=== PATIENT | male | born 1960 | race Caucasian/White ===

== ENCOUNTER → 2016-09-29 | Outpatient (CLI) | payer BC ==
[~2016-09-29] MED LIST: ASPI325T39 PO; ATOR-24 PO; BUPR75TA20 PO; CYM/30 PO; CYM/60 PO; GLC/500 PO; HYDR25TA4 PO; LSN5 PO
--- NOTE | 2016-09-29 09:09 | DIAGNOSTIC IMAGING REPORT ---
MRI OF THE CERVICAL SPINE WITHOUT CONTRAST CLINICAL HISTORY: Cord compression. Neck pain following remote injury. COMPARISON: None TECHNIQUE: Utilizing a 1.5 Jie magnet and dedicated coil, multiplanar, multiecho imaging of the cervical spine was performed without IV contrast. FINDINGS: Alignment of the cervical spine is anatomic. Vertebral body heights are maintained. There is no marrow replacement. There is no intracanalicular mass or fluid collection. Cervical cord signal and caliber are normal. C2-C3: The central canal and neural foramen are patent. C3-C4: The central canal is patent. There is mild narrowing of both neural foramen. C4-C5: There is mild narrowing of the central canal due to disc osteophyte complex and ligamentous hypertrophy. There is moderate narrowing of both neural foramen due to facet arthrosis and uncovertebral hypertrophy. C5-C6: Posterior disc osteophyte complex results in mild narrowing of the central canal. There is severe narrowing of the left neural foramen and mild narrowing of the right neural foramen. C6-C7: The central canal is patent. There is mild narrowing of both neural foramen. C7-T1: The central canal and neural foramen are patent. IMPRESSION: 1. Mild multilevel degenerative disc disease with mild central canal stenosis at several levels. Normal cervical cord signal. 2. Moderate to severe multilevel neural foraminal stenosis most pronounced at C5-C6 and C4-C5, as described above. Electronically signed by: Alvaro Lawton M.D. 09/29/2016 9:08 AM Dictated Date/Time: 09/29/2016 9:02 AM
== END | disposition home or self-care (01) ==
LOC: C.MRIBC 08:09
PROVIDERS: ATTEND Orthopaedic Surgery Orthopaedic Surgery of the Spine
DX: M47.812 Spondylosis without myelopathy or radiculopathy, cervical region (principal)

== ENCOUNTER 2016-12-12 05:50 | Observation (INO) | payer BC ==
[2016-10-20 10:49] VITALS: BMI 32.0
--- NOTE | 2016-10-20 11:23 | PAT Medication Instructions ---
Service Date Oct 20, 2016. Current Home Medication List Aspirin (Aspirin Ec), 325 MG PO NOON Atorvastatin (Lipitor), 40 MG PO HS Bupropion (Wellbutrin), Unknown Dose PO QAM Duloxetine HCl (Cymbalta), 1 CAP PO QAM Duloxetine HCl (Cymbalta), 1 CAP PO QAM Hydrochlorothiazide (Hctz), 25 MG PO QAM Lisinopril (Lisinopril), Unknown Dose PO QAM Medication Instructions For Your Scheduled Surgery - Check with surgeon/primary care physician for instructions: Aspirin (Aspirin Ec), 325 MG PO NOON - Hold the following medications the morning of surgery: Hydrochlorothiazide (Hctz), 25 MG PO QAM Lisinopril (Lisinopril), Unknown Dose PO QAM - Take the following medications the morning of surgery with a sip of water: Duloxetine HCl (Cymbalta), 1 CAP PO QAM Duloxetine HCl (Cymbalta), 1 CAP PO QAM Bupropion (Wellbutrin), Unknown Dose PO QAM - Take the following medications as scheduled the night before surgery: Atorvastatin (Lipitor), 40 MG PO HS If you have any questions please call us at [phone] (Sonya Weaver PA-C) or [phone] or [phone]
--- NOTE | 2016-10-20 12:16 | DIAGNOSTIC IMAGING REPORT ---
TWO VIEW CHEST CLINICAL HISTORY: Preoperative examination. FINDINGS: PA and lateral chest radiographs are obtained. No prior studies are available for comparison at the time of dictation. The cardiomediastinal silhouette is unremarkable. The lungs and pleural spaces are clear. There is no pneumothorax. The bony thorax appears intact. IMPRESSION: No active disease in the chest. Electronically signed by: Elder Hopkins M.D. 10/20/2016 12:14 PM Dictated Date/Time: 10/20/2016 12:14 PM
[2016-10-20 12:41] LABS: BASO % 0.5 %; BASO ABS # 0.03 K/uL (0-0.2); COMPLETE YES; EOS % 1.8 %; HEMATOCRIT 41.5 % (42-52); IG% 0.5 %; LYMPH % 18.5 %; LYMPH ABS # 1.05 K/uL (1.2-3.4); MEAN CELL VOLUME 84.2 fL (80-100); MEAN CORPUSCULAR HEMOGLOBIN 29.2 pg (25-34); MEAN CORPUSCULAR HGB CONC 34.7 g/dl (32-36); NEUT % 66.7 %; PLATELET COUNT 224 K/uL (130-400); RED BLOOD COUNT 4.93 M/uL (4.7-6.1); WHITE BLOOD COUNT 5.68 K/uL (4.8-10.8)
[2016-10-20 12:49] LABS: URINE APPEARANCE CLEAR (CLEAR); URINE BILIRUBIN NEG (NEG); URINE COLOR YELLOW; URINE NITRITE NEG (NEG); UROBILINOGEN NEG (NEG)
[2016-10-20 12:52] LABS: PROTHROMBIN TIME (PATIENT) 10.4 SECONDS (9.0-12.0)
[2016-10-20 12:58] LABS: MANUAL MICROSCOPIC REQUIRED? NO; REVIEW REQ? NO
[2016-10-20 13:20] LABS: BUN/CREATININE RATIO 14.6 (10-20); CALCIUM 8.7 mg/dl (8.5-10.1); CREATININE 1.1 mg/dl (0.60-1.40); POTASSIUM 4.1 mmol/L (3.5-5.1)
[2016-10-20 13:38] LABS: BETA-HYDROXYBUTYRATE 1.29 mg/dL (0.2-2.81)
--- NOTE | 2016-12-06 08:54 | HISTORY & PHYSICAL EXAMINATION ---
DATE OF ADMISSION: 12/07/2016 He is being preoped for single-level ACDF cervical spine C5-C6 with iliac crest bone graft. He has had a 27-year duration of pain, headaches primarily, neck and arm pain, trapezius pain. He has failed conservative measures. He has radiographic criteria consistent with his pain. He is set up for his surgery. MEDICAL HISTORY: Positive for anxiety, numbness and tingling, hypertension, high cholesterol, diabetes mellitus. No coronary artery disease. Kidney and liver negative. Slightly overweight. SURGICAL HISTORY: Undescended testicle repair in 1970s, wisdom teeth, tonsils. ALLERGIES: BEE STING. MEDICATIONS: Hydrochlorothiazide, lisinopril, Cymbalta, Wellbutrin, aspirin and metformin. REVIEW OF SYSTEMS: He denies any blurred vision, double vision, tinnitus. He does have headaches consistent with his cervical pathology. He denied in the office any chest pain, shortness of breath. Occasional asthma but currently no shortness of breath. No nausea, vomiting, urgency, frequency. No change in bowel or bladder function. OBJECTIVE: GENERAL: He is 5 feet 6 inches. He is 205 pounds. He is appropriately dressed. His mentation is normal. Does not appear depressed. He is 56 years of age. VITAL SIGNS: Stable on preop. HEENT: Essentially normal. HEART: Normal S1, S2. No S3. LUNGS: Clear to auscultation. No rales, rhonchi or wheezing. ABDOMEN: Soft and nontender. NEUROLOGIC: Intact, 5/5 strength, good sensation and motor ability. Has a positive Spurling maneuver and Lhermitte sign. No upper motor neuron pathology. Images demonstrate degenerative changes C5-C6 cervical. DISPOSITION: Includes a single-level ACDF cervical spine C5-C6 with iliac crest bone graft.
[2016-12-06 15:08] VITALS: BMI 32.0
[~2016-12-12] VITALS: Ht 167.6 cm; Wt 91.4 kg
[2016-12-12] VITALS (13 sets, daily range): BP systolic 109–149; BP diastolic 69–82; PULSE 78–102; TEMP 36.4–36.9; O2SAT 3–98; Ht 167.6 cm; Wt 91.4 kg
[~2016-12-12 05:50] MED LIST changes: +CEFAZOLIN 2000 MG/60 ML D5W IV SCH; +LACTATED RINGER'S 1000ML 1,000 ML IV SCH; +SODIUM CHLORIDE 0.9% 1000ML 1,000 ML IV SCH
[2016-12-12] MEDS ORDERED: LARYING-O-JET KIT (LTA) EXT ONE ×2 (06:53)
[2016-12-12] MEDS ORDERED: DEXAMETHASONE SOD INJ 4 MG/ML VIAL ONE (06:53)
[2016-12-12] MEDS ORDERED: ROCURONIUM BROMIDE 10 MG/ML 5 ML VIAL ONE (06:53)
[2016-12-12] MEDS ORDERED: MIDAZOLAM HCL 1 MG/ML 2ML VIAL ONE (06:53)
[2016-12-12] MEDS ORDERED: FENTANYL CITRATE INJ 50 MCG/1 ML 2 ML VIAL ONE ×3 (06:53→08:08)
[2016-12-12] MEDS ORDERED: PROPOFOL IV EMULSION 10 MG/ML 20 ML VIAL IV ONE (06:53)
[2016-12-12] MEDS ORDERED: GLYCOPYRROLATE INJ 0.2 MG/ML VIAL ONE (06:53)
[2016-12-12] MEDS ORDERED: LIDOCAINE HCL 2% 2 ML VIAL (20MG/ML) ONE (06:53)
[2016-12-12] MEDS ORDERED: NEOSTIGMINE METHYLSULFATE 5 MG/5 ML SYR ONE (06:53)
[2016-12-12] MEDS ORDERED: ONDANSETRON INJ 2 MG/ML 2 ML VIAL ONE (06:53)
[2016-12-12] MEDS ORDERED: CEFAZOLIN IV 2,000 MG/60 ML D5W IV ONE (07:07)
--- NOTE | 2016-12-12 07:16 | History & Physical Bridge Note ---
H&P Re-Evaluation Bridge Note: I have examined the patient, reviewed the History & Physical and in the interval since the performance of the History & Physical I have noted the following changes of clinical significance: No changes noted
[2016-12-12] MEDS ORDERED: BUPIVACAINE/EPINEPHRINE 0.5% MPF 1:200,000 30 ML VIAL ONE (07:17)
[2016-12-12] MEDS ORDERED: GELATIN SPONGE SZ 100 ONE ×2 (07:17→07:18)
[2016-12-12] MEDS ORDERED: THROMBIN FOR SOLN 20000 UNIT KIT ONE ×3 (07:17→07:45)
[2016-12-12] MEDS ORDERED: BACITRACIN 50000 UNIT VIAL ONE (07:18)
[2016-12-12] MEDS ORDERED: LABETALOL HCL IV 5 MG/ML 20ML IV ONE (08:31)
--- NOTE | 2016-12-12 09:17 | DIAGNOSTIC IMAGING REPORT ---
INTRAOPERATIVE FLUOROSCOPIC IMAGE OF THE CERVICAL SPINE CLINICAL HISTORY: Anterior cervical discectomy and fusion. COMPARISON STUDY: Cervical spine MRI September 29, 2016. Fluoroscopy time: 7 seconds. FINDINGS: A single lateral intraoperative fluoroscopic image demonstrates a C5-C6 anterior discectomy and fusion. Endotracheal and nasogastric tubes are partially imaged. IMPRESSION: Fluoroscopic images demonstrating a C5-C6 anterior discectomy and fusion. Electronically signed by: Alvaro Lawton M.D. 12/12/2016 9:15 AM Dictated Date/Time: 12/12/2016 9:14 AM
--- NOTE | 2016-12-12 09:21 | [facility] Post Operative Brief Note ---
Immediate Operative Summary Operative Date Dec 12, 2016. Pre-Operative Diagnosis Cervical Spondylosis Post-Operative Diagnosis Cervical Spondylosis Procedure(s) Performed Anterior Cervical Discectomy and Fusion C5-C6, with Iliac Crest Bone Graft Surgeon Dr. Jay Whipper Surgeon(s) Daniel Quinones PA-C Estimated Blood Loss 15 cc Findings spondylosis c5-6 Specimens none per surgeon Complication(s) None Disposition Recovery Room / PACU
[2016-12-12] MEDS ORDERED: ACETAMINOPHEN IV 1,000 MG in EMPTY BAG 0 ML IV PRN (09:30)
[2016-12-12] MEDS ORDERED: MoRPHine SULFATE 10 MG/ML CARP/VIAL IV PRN (09:30)
[2016-12-12] MEDS ORDERED: LORAZEPAM INJ 0.5 MG in SYRINGE 0.75 ML IV PRN (09:30)
[2016-12-12] MEDS ORDERED: MAGNESIUM HYDROXIDE SUSP 30 ML UDC PO PRN (09:30)
[2016-12-12] MEDS ORDERED: RACEPINEPHRINE 2.25% NEBU SOLN 0.5 ML VIAL INH PRN (09:30)
[2016-12-12] MEDS ORDERED: HYDROCODONE/ACETAMOPHEN 5/325MG TAB PO PRN (09:30)
[2016-12-12] MEDS ORDERED: HYDROmorphone INJ 0.5 MG/0.5 ML SYR IV PRN (09:30)
[2016-12-12] MEDS ORDERED: NALOXONE HCL 0.4 MG/1 ML VIAL/CARP IV PRN (09:30)
[2016-12-12] MEDS ORDERED: ONDANSETRON INJ 2 MG/ML 2 ML VIAL IV PRN ×2 (09:30)
[2016-12-12] MEDS ORDERED: ATROPINE SULFATE 0.1 MG/ML 5ML SYR IV PRN (09:30)
[2016-12-12] MEDS ORDERED: DEXAMETHASONE INJ 8 MG in SYRINGE 0 ML IV PRN (09:30)
[2016-12-12] MEDS ORDERED: EpHEDrine SULFATE INJ 50 MG/ML AMP IV PRN (09:30)
--- NOTE | 2016-12-12 09:43 | OPERATIVE REPORT ---
DATE OF OPERATION: 12/12/2016 PREOPERATIVE DIAGNOSIS: Spondylosis nerve root compression, cervical migraines, C5-C6 cervical spine. POSTOPERATIVE DIAGNOSIS: Same. PROCEDURE: ACDF cervical spine C5-C6 cervical and left iliac crest structural autograft. SURGEON: Dr. Jay. BIOMASS PRODUCTION MANAGER: Daniel Dugan PA-C. COMPLICATIONS: Zero. BLOOD LOSS: 15 mL. DESCRIPTION OF PROCEDURE: The patient was taken to the operating room, a general intubated anesthetic provided to the patient, secured supported. Prepped and draped sterile both the cervical spine and the iliac crest. Scrubbed first with Betadine, prepped with DuraPrep. We then draped him sterile. We made a transverse skin incision over the C5-C6 region of the cervical spine dissecting the soft tissue carefully with a difficult dissection. There was a large either hematoma or lymph node somewhat in our way early on in dissection. We then safely got down to the anterior aspect of the cervical spine. There was no vascular injury. We then did a formal discectomy first with a 15 blade then pituitary rongeurs cleaning out the entire disc interval. We then went to the left iliac crest, made a skin incision, fascial incision, and picked out a structural autograft approximately 6-8 mm in height, 15 mm in depth and approximately 12 mm across. This was placed into the discectomy site at C5-C6. An anterior plate from the [employer] placed over the construct also 14 mm in height. Cross table lateral radiographs demonstrate good positioning with C-arm. We tightened down the plate. We secured the fixation. We irrigated and closed both wounds with different sutures. 3-0 nylon on the skin on the iliac crest and the cervical spine 4-0 Nurolon. We then placed him in a cervical collar. The patient returned to PACU improved, stable. There were no apparent complications with the surgery. I attest to the content of the Intraoperative Record and any orders documented therein. Any exceptio ns are noted below.
[2016-12-12] MEDS ORDERED: IV FLUIDS COMPLETED PRN (09:45)
--- NOTE | 2016-12-12 10:59 | Anesthesiology Progress Note ---
Anesthesia Post Op Note Date & Time Dec 12, 2016 at 11:00 Vital Signs Pain Intensity: 0 Vital Signs Past 12 Hours Date Time Temp Pulse Resp B/P Pulse Ox O2 Delivery O2 Flow Rate FiO2 12/12/16 10:50 85 16 147/76 96 Nasal Cannula 4 12/12/16 10:35 36.6 81 16 139/81 97 Nasal Cannula 4 12/12/16 10:25 36.6 81 16 158/82 96 Nasal Cannula 4 12/12/16 10:15 78 16 153/84 96 Nasal Cannula 4 12/12/16 10:05 78 16 143/88 96 Nasal Cannula 4 12/12/16 09:55 73 16 148/88 96 Nasal Cannula 4 12/12/16 09:45 36.4 73 16 158/84 95 Nasal Cannula 4 12/12/16 09:35 76 16 147/87 98 Mask 10 12/12/16 09:25 76 16 152/89 99 Mask 10 12/12/16 09:19 36.2 82 16 167/88 100 Mask 10 12/12/16 06:28 36.8 83 20 149/74 97 Room Air Notes Mental Status: alert / awake / arousable, participated in evaluation Pt Amnestic to Procedure: Yes Nausea / Vomiting: adequately controlled Pain: adequately controlled Airway Patency, RR, SpO2: stable & adequate BP & HR: stable & adequate Hydration State: stable & adequate Anesthetic Complications: no major complications apparent
[2016-12-12] MEDS: FENTANYL CITRATE INJ 50 MCG/1 ML 2 ML VIAL IV PRN ×2 (11:18→11:23)
[2016-12-12] MEDS: SODIUM CHLORIDE 0.9% 1000ML 1,000 ML IV SCH ×2 (15:04→22:28)
[2016-12-12] MEDS: CEFAZOLIN IV 1,000 MG in DEXTROSE 5% 50ML 50 ML IV SCH (16:24)
[2016-12-12] MEDS: DEXAMETHASONE INJ 6 MG in SYRINGE 0 ML IV SCH (16:24)
--- NOTE | 2016-12-12 17:56 | Discharge Instructions ---
Discharge Instructions Date of Service Dec 12, 2016. Admission Reason for Admission: Cervical Spondylosis W/Out Myelopathy Discharge Discharge Diagnosis / Problem: cord compression Discharge Goals Goal(s): Improve function Activity Recommendations Activity Limitations: as noted below Lifting Limitations: gradually increase as tolerated Exercise/Sports Limitations: until after follow-up appointment May Resume Sexual Activity: after follow-up appointment Shower/Bathe: keep incision dry Driving or Machine Use: home, rest, recover . Instructions / Follow-Up Instructions / Follow-Up MEDICATIONS: Please take your prescriptions as instructed at your pre-op appointment. SPECIAL CARE: The following information is intended to answer some of the common questions and concerns regarding your surgery. Each patient is an individual and receives individual counselling throughout the course of treatment, from diagnosis to surgery all the way through recovery. What follows is not an exhaustive list, but should be a useful guide to some of the common questions and concerns patients have regarding their surgeries. These are not provided to keep you from calling us; rather, they give you something accurate and concrete to reference as you recover from your procedure. If you need us, we are available to you. As always, if you are not sure about something, call us at [phone]. MEDICAL EMERGENCIES: For these conditions, call 911 or go to your local hospital-based Emergency Department - not [facility] or equivalent. * Paralysis * Severe chest pain or difficulty breathing * Swelling or redness of either leg Spine procedures can be rather complex and though complications are rare, they do occur. In such cases, effective advice regarding emergency situations cannot always be addressed over the telephone. You may be referred to the emergency department for more effective management of your problem. Activity Limitations: It is important to give your body time to heal, so please limit your activities : * In general, don't do anything that moves your spine too much. You should avoid contact sports, twisting or heavy lifting while you recover. * 5-10 pounds is all you should attempt to lift. * You should not plan on driving for approximately 3 weeks and you should avoid traveling more than 30-45 minutes at a time. Longer trips should be broken down with walking breaks spaced appropriately. * Physical therapy is not usually required. * Walking and good posture practices will help you recover and regain your function. * Avoid straining or sudden changes in position. * In general, the goal is to take it easy and recover. Don't cause any new problems. Just relax. Showers: * Do not take a bath, use a Jacuzzi or hot tub or otherwise submerge your incision. * It is usually safe to take a shower 4-5 days after your surgery. * Your incision does not require any special creams or ointments. * Simply clean it with soap and water, dry and re-dress with a clean bandage afterwards. Incision: * Keep incision clean, dry and protected until your first follow-up appointment. * Some amount of drainage and redness is normal. Any drainage should be fairly clear and not have a foul odor. * If you feel anything is wrong or you have excessive drainage, please call us. * Your stitches and jose will be removed 10-14 days after your surgery. At the time of your first post-op visit. * Neck surgeries are typically closed with a suture underneath the skin. The steri-strips over the incision should be maintained until we see you in the office. Bracing: * You may be provided with a back or neck brace to encourage good posture and prevent injury. It will remind you not to do too much as you heal and will alert others to the fact that you have had a surgery. * Back braces may be removed for showers and when you are resting at home. They must be worn when you are walking around for any period of time or for travel. * For neck surgery, you will likely be provided with two cervical collars. The soft collar ([place] or foam rubber) is worn most commonly throughout the day and while sleeping. The plastic collar (provided at the hospital) is for showering/bathing. * Except while eating, collars should remain in place. More specifically, bracing is provided for a purpose and should be worn. * Please obtain your brace or collars prior to your operation and bring them to the hospital with you on the day of surgery. * You should also bring your collars to your post-op appointment with Dr. Jay. You should always take good care of your body and practice healthy habits, especially following surgery. You should: * Follow your doctor's treatment plan * Sit and stand properly with good posture (ears over shoulders, shoulders over hips) Don't slouch * Learn to lift correctly * Exercise regularly (low-impact aerobic exercise is especially good, but check with your doctor first) * Generally, be up and walking for 5-10 minutes at a time at least 3-4 times per day from the day you get home * Increasing walking to tolerance until you can walk for 20-30 minutes at a time * Attain and maintain a healthy body weight * Eat healthy foods ( a well-balanced, low-fat diet rich in fruits and vegetables) and get enough calcium * Avoid excessive use of alcohol When to call our office - If you notice any of the following: * Increased pain not relieve by pain medicine * Fevers greater then 100 degrees F, chills or flu symptoms * Increased redness around incision * Drainage from the incision that is not clear * Any foul smelling drainage * Swelling or fluid collection beneath the skin Miscellaneous: * In the hospital, you may be given a walker or cane for support while walking. These are temporary needs and are intended to prevent injuries due to falls. You may discontinue them when you feel strong and steady enough on your feet. * Sleep in a comfortable position. We find that many patients find a lounge chair or recliner with several pillows to be beneficial in the early post-operative period. * The support stockings should be used for 7-10 days and may be discontinued when you are back to walking more and conducting usual household activities. No problem is insignificant. We are here to help you and get you well. Contact us at [phone]. Definitions: Foraminotomy: If part of the disc or a bone spur (osteophyte) is pressing on a nerve as it leaves the vertebra (through an exit called the foramen), a foraminotomy may be done. Otomy means "to make an opening." A foraminotomy is making the opening of the foramen larger, so the nerve can exit without being compressed. Laminotomy: Similar to the foraminotomy, a laminotomy makes a larger opening, this time in your bony plate protecting your spinal canal and spinal cord (the lamina). The lamina may be pressing on your nerve, so the surgeon may make more room for the nerves using a laminotomy. Laminectomy: Sometimes, a laminotomy is not sufficient. The surgeon may need to remove all or part of the lamina. This procedure is called a laminectomy. This can often be done at many levels without any harmful effects. Current Hospital Diet Patient's current hospital diet: Full Liquid Diet Discharge Diet Recommended Diet: Regular Diet Fluid Restriction: None Procedures Procedures Performed: Anterior Cervical Discectomy and Fusion C5-C6, with Iliac Crest Bone Graft Pending Studies Studies pending at discharge: no Medical Emergencies . Who to Call and When: Medical Emergencies: If at any time you feel your situation is an emergency, please call 911 immediately. . Non-Emergent Contact Non-Emergency issues call your: Surgeon Call Non-Emergent contact if: you have any medication questions . "Provider Documentation" section prepared by Medhat Jay. VTE Core Measure Inpt VTE Proph given/why not?: Treatment not indicated
[2016-12-12] MEDS ORDERED: ATORVASTATIN 40 MG TAB PO SCH (21:00)
[2016-12-12] MEDS: DOCUSATE SODIUM 100 MG CAP PO SCH (21:01)
[2016-12-13] VITALS (11 sets, daily range): BP systolic 126–150; BP diastolic 78–87; PULSE 87–100; TEMP 36.7–36.8; O2SAT 91–98
[2016-12-13] MEDS: CEFAZOLIN IV 1,000 MG in DEXTROSE 5% 50ML 50 ML IV SCH ×2 (00:20→08:25)
[2016-12-13] MEDS: DEXAMETHASONE INJ 6 MG in SYRINGE 0 ML IV SCH ×2 (00:20→10:21)
--- NOTE | 2016-12-13 07:43 | DISCHARGE SUMMARY ---
He is alert, oriented, no pain. Vital signs stable. Wound is clean and dry. ASSESSMENT: Status post single-level anterior cervical decompression and fusion with iliac crest bone graft. DISPOSITION: Dressings changed this morning. Collar is to be worn. Medication on his chart. He will be discharged home in improved, stable condition. Instructions and precautions provided x2. Follow up in the office in approximately 14 days.
[2016-12-13] MEDS: DOCUSATE SODIUM 100 MG CAP PO SCH (08:30)
[2016-12-13] MEDS ORDERED: METFORMIN HCL 500 MG TAB PO SCH (08:30)
[2016-12-13] MEDS ORDERED: DULOXETINE HCL 60 MG CAP PO SCH (09:00)
[2016-12-13] MEDS ORDERED: HYDROCHLOROTHIAZIDE 25 MG TAB PO SCH (09:00)
[2016-12-13] MEDS ORDERED: DULOXETINE (CYMBALTA) 30 MG CAP PO SCH (09:00)
--- NOTE | 2016-12-13 09:43 | Anesthesiology Progress Note ---
Anesthesia Post Op Note Date & Time Dec 13, 2016 at 09:43 Vital Signs Vital Signs Past 12 Hours Date Time Temp Pulse Resp B/P Pulse Ox O2 Delivery O2 Flow Rate FiO2 12/13/16 08:05 36.7 87 18 148/80 94 Room Air 12/13/16 08:03 90 12 94 Room Air 12/13/16 07:19 91 Room Air 12/13/16 06:00 36.7 92 16 138/87 93 Room Air 12/13/16 04:00 36.8 89 18 126/78 94 Nasal Cannula 2.0 Humidified Oxygen 12/13/16 03:47 90 14 94 Nasal Cannula 2.0 12/13/16 02:00 36.7 96 14 150/82 98 Nasal Cannula 2.0 Humidified Oxygen 12/13/16 00:02 Nasal Cannula 2.0 Humidified Oxygen 12/13/16 00:02 36.7 96 16 137/85 96 Nasal Cannula 2.0 Humidified Oxygen 12/12/16 23:46 86 16 96 Nasal Cannula 3.0 12/12/16 22:20 36.6 94 18 125/79 95 Nasal Cannula 3.0 Humidified Oxygen Notes Mental Status: alert / awake / arousable, participated in evaluation Pt Amnestic to Procedure: Yes Nausea / Vomiting: adequately controlled Pain: adequately controlled Airway Patency, RR, SpO2: stable & adequate BP & HR: stable & adequate Hydration State: stable & adequate Anesthetic Complications: no major complications apparent
[2016-12-14] MEDS ORDERED: BISACODYL 10 MG SUPP PR PRN (06:00)
[2016-12-15] MEDS ORDERED: POLYETHYLENE (MIRALAX) 17 GM PACK PO SCH (09:00)
== END 2016-12-13 12:04 | disposition home or self-care (01) ==
LOC: ENRESERVTM → ENRESERVDT → C.ACU 05:50 → C.3E 09:24
PROVIDERS: ADMIT Orthopaedic Surgery Orthopaedic Surgery of the Spine; ATTEND Orthopaedic Surgery Orthopaedic Surgery of the Spine
DX: M47.12 Other spondylosis with myelopathy, cervical region (principal); G43.809 Other migraine, not intractable, without status migrainosus; I10 Essential (primary) hypertension; F41.9 Anxiety disorder, unspecified; E11.9 Type 2 diabetes mellitus without complications; E66.9 Obesity, unspecified; Z79.899 Other long term (current) drug therapy; Z79.82 Long term (current) use of aspirin; Z79.84 Long term (current) use of oral hypoglycemic drugs; Z68.32 Body mass index [BMI] 32.0-32.9, adult

== ENCOUNTER 2019-06-30 12:42 | Inpatient (IN) ==
[2019-06-30] MEDS ORDERED: SODIUM CHLORIDE 0.9% 1000ML 1,000 ML IV ONE (13:11)
[2019-06-30 13:44] LABS: Appearance Urine Clear (Clear); Bilirubin Urine Negative (Negative); Blood Urine Negative (Negative); Color Urine Yellow; Glucose Urine UA 3+ (Negative); Ketones Urine 2+ (Negative); Leukocyte Esterase Urine Negative (Negative); Nitrite Urine Negative (Negative); Protein Urine Negative (Negative); Specific Gravity Urine 1.037 (1.000-1.030); Urobilinogen Urine Negative (Negative)
[2019-06-30 13:49] LABS: Basophils # (auto) 0.02 K/uL (0-0.2); Basophils % (auto) 0.2 %; Eosinophils # (auto) 0.05 K/uL (0-0.5); Eosinophils % (auto) 0.5 %; Hematocrit (blood only) 42.6 % (42-52); Hemoglobin 15.2 g/dL (14.0-18.0); Immature Granulocytes # (auto) 0.06 K/uL (0.00-0.02); Immature Granulocytes % (auto) 0.6 %; Lymphocytes # (auto) 1.26 K/uL (1.2-3.4); Mean Corpuscular Hemoglobin 29.7 pg (25-34); Mean Corpuscular Hgb Conc 35.7 g/dL (32-36); Mean Corpuscular Volume 83.2 fL (80-100); Mean Platelet Volume 10.1 fL (7.4-10.4); Monocytes # (auto) 0.79 K/uL (0.11-0.59); Monocytes % (auto) 8.2 %; Neutrophils % (auto) 77.5 %; Platelet Count 214 K/uL (130-400); RDW Coefficient of Variation 13.9 % (11.5-14.5); RDW Standard Deviation 42.5 fL (36.4-46.3); Red Blood Count 5.12 M/uL (4.7-6.1); White Blood Count 9.68 K/uL (4.8-10.8)
[2019-06-30 14:06] LABS: BUN Creatinine Ratio 12.4 (10-20); Bilirubin,Total 0.8 mg/dl (0.2-1); Calcium 9.4 mg/dl (8.5-10.1); Creatinine Clr Calc Pharmacy 80.9 ml/min; Est GFR (African American) 90.5; Est GFR (Non-African American) 78.1; Globulin 3.9 gm/dl (2.5-4.0); Potassium 4.2 mmol/L (3.5-5.1); Total Protein 7.9 gm/dl (6.4-8.2)
[2019-06-30] MEDS ORDERED: ROCURONIUM BROMIDE 10 MG/ML 5 ML VIAL ONE (14:11)
[2019-06-30] MEDS ORDERED: ONDANSETRON INJ 2 MG/ML 2 ML VIAL ONE (14:11)
[2019-06-30] MEDS ORDERED: LIDOCAINE HCL 2% 2 ML VIAL/AMP(20MG/ML) INFIL ONE ×2 (14:11→14:14)
[2019-06-30] MEDS ORDERED: fentaNYL citrate 100 MCG/2 ML VIAL ONE ×2 (14:11→15:39)
[2019-06-30] MEDS ORDERED: PROPOFOL IV EMULSION 10 MG/ML 20 ML VIAL IV ONE (14:11)
[2019-06-30] MEDS ORDERED: SUCCINYLCHOLINE CHLORIDE 20 MG/ML 10 ML VIAL ONE (14:11)
[2019-06-30] MEDS ORDERED: MIDAZOLAM HCL 1 MG/ML 2ML VIAL ONE (14:12)
[2019-06-30 14:20] LABS: Beta-Hydroxybutyrate 12.18 mg/dl (0.2-2.81)
[2019-06-30] MEDS ORDERED: BUPIVACAINE 0.5 % 5 MG/1 ML MPF 30ML VIAL ONE (14:24)
[2019-06-30] MEDS ORDERED: HEPARIN (PORCINE) 1000 UNIT/ML 10 ML (CATH LAB USE ONLY) ONE (14:24)
[2019-06-30] MEDS ORDERED: CEFAZOLIN 250 MG/ML 1 GM VIAL ONE (14:25)
[2019-06-30] MEDS ORDERED: INSULIN ASPART PER UNIT ONE ×3 (14:40→17:34)
--- NOTE | 2019-06-30 14:56 | Surgery Consultation ---
Date of Consultation June 30, 2019 Assessment & Plan (1) Acute appendicitis: 58 year-old male with 24 hours history of RLQ abdominal pain with outpatient CT scan showing dilated appendix at 13 mm with periappendiceal inflammation and wall thickening consistent with acute appendicitis. History of poorly controlled diabetes with blood sugar 300 this morning and 464 currently. History of HTN not on any medication and history of stroke 10 years ago. No leukocytosis. Afebrile Plan: Plan for laparoscopic appendectomy possible open. Informed pt of procedure and risks and informed consent obtained by Dr. Prado. Keep patient NPO [address] Prado has seen and examined pt, see addendum for further recomendations/plan. Supervising Physician Co-Signing Physician Notes I interviewed and examined this patient I agree with the above note. He has 24 hours worth of symptoms of right lower quadrant pain with right lower quadrant tenderness and a CT scan at is indicative of appendicitis. I discussed options with him that included IV antibiotics versus surgical intervention. I explained the procedure and the possible complications. I explained the possible need to convert from laparoscopic to open procedure. We are going to proceed with surgical intervention. He signed a consent form. History of Present Illness Reason for Consultation: Acute appendicitis Requesting Physician: Rosy Linton PA-C Attending Physician: Jun Prado MD History of Present Illness Marcos is a 58 year-old male who presented to ER today after seeing his PCP over at [facility] for blood sugar control and had an outpatient CT scan of his abdomen for abdominal pain that started yesterday morning. Marcos states pain started in right lower abdomen that woke him up yesterday morning. Denies of any prior history of similar abdominal pain. Denies fever, chills, nausea, vomiting, chest pain, shortness of breath, difficulty breathing, constipation, blood in stools, black/tarry stools. Marcos has history of diabetes in which he has been trying to control with diet modification alone. Does not take any diabetic medications. His blood sugar was 300 this morning. Has history of stroke 10 years ago, no residual weakness or effects. States he had history of high blood pressure but stopped taking medication a few years ago. Currently takes 365 mg of aspirin daily. Outpatient CT scan of abdomen and pelvis showing dilated appendix at 13 mm with wall thickening and periappendiceal stranding however no evidence of abscess or perforation. Labs show no leukocytosis. Afebrile. CMP however showed glucoase at 464. Allergies Allergy/AdvReac Type Severity Reaction Status Date / Time bee venom protein (honey bee) Allergy Unknown LOCALIZED Verified 06/30/19 14:44 SWELLING AT SITE No Known Drug Allergies Allergy Unknown NKDA Verified 06/30/19 14:44 Home Medications Home Medications Medication Instructions Recorded Confirmed Type aspirin 325 mg PO DAILY 06/30/19 06/30/19 History Patient History Medical History Cervical spinal cord compression Diabetes mellitus HTN (hypertension) Stroke Family History Other No pertinent family history in first degree relatives Social History Feels Safe at Home: Yes Smoking Status: Never smoker Review of Systems Review of Systems: All systems reviewed & are unremarkable except as noted in HPI & below Physical Exam Constitutional: WD/WN, vitals as above no acute distress Respiratory: normal respiratory effort, lungs clear to auscultation Cardiovascular: RRR, no murmur, no edema Gastrointestinal (Abdomen): Inspection/Auscultation: abdomen normal to inspection; abdomen not distended Percussion/Palpation: + abdomen tender (RLQ), + guarding (RLQ) and abdomen soft; abdomen not rigid Skin: no rashes, warm and dry Psychiatric: A+Ox3, euthymic affect Results & Data Vital Signs (Past 12 Hours) Vital Signs Temp Pulse Pulse Pulse Resp BP BP 06/30/19 14:28 36.7 C 95 H 15 161/86 H 06/30/19 14:14 99 H 20 177/88 H 06/30/19 13:37 100 H 20 176/84 H 06/30/19 12:46 36.7 C 111 H 19 183/109 H Pulse Ox 06/30/19 14:28 96 06/30/19 14:14 94 06/30/19 13:37 95 06/30/19 12:46 93 Laboratory Results 06/30/19 06/30/19 06/30/19 Range/Units 14:28 13:30 13:30 WBC (4.8-10.8) K/uL RBC (4.7-6.1) M/uL Hgb (14.0-18.0) g/dL Hct (42-52) % MCV (80-100) fL MCH (25-34) pg MCHC (32-36) g/dL RDW Std Deviation (36.4-46.3) fL RDW Coeff of Jeremy (11.5-14.5) % Plt Count (130-400) K/uL MPV (7.4-10.4) fL Immature Gran % (Auto) % Neut % (Auto) % Lymph % (Auto) % [place] % (Auto) % Eos % (Auto) % Baso % (Auto) % Immature Gran # (Auto) (0.00-0.02) K/uL Neut # (Auto) (1.4-6.5) K/uL Lymph # (Auto) (1.2-3.4) K/uL [place] # (Auto) (0.11-0.59) K/uL Eos # (Auto) (0-0.5) K/uL Baso # (Auto) (0-0.2) K/uL Sodium 133 L (136-145) mmol/L Potassium 4.2 (3.5-5.1) mmol/L Chloride 98 (98-107) mmol/L Carbon Dioxide 26 (21-32) mmol/L Anion Gap 9.0 (3-11) BUN 13 (7-18) mg/dl Creatinine 1.06 (0.6-1.4) mg/dl Est Cr Clr Drug Dosing 80.9 ml/min Est GFR ( Amer) 90.5 Est GFR (Non-Af Amer) 78.1 BUN/Creatinine Ratio 12.4 (10-20) Glucose 464 H* (70-99) mg/dl POC Glucose 365 H* (70-99) Calcium 9.4 (8.5-10.1) mg/dl Total Bilirubin 0.8 (0.2-1) mg/dl AST 9 L (15-37) U/L ALT 24 (12-78) U/L Alkaline Phosphatase 83 (45-117) U/L Total Protein 7.9 (6.4-8.2) gm/dl Albumin 4.0 (3.4-5.0) gm/dl Globulin 3.9 (2.5-4.0) gm/dl Albumin/Globulin Ratio 1.0 (0.9-2) Lipase 258 (73-393) U/L Beta-Hydroxybutyric Acd 12.18 H (0.2-2.81) mg/dl Urine Color Yellow Urine Appearance Clear (Clear) Urine pH 5.0 (4.5-7.5) Ur Specific [place] 1.037 H (1.000-1.030) Urine Protein Negative (Negative) Urine Glucose (UA) 3+ H (Negative) Urine Ketones 2+ H (Negative) Urine Blood Negative (Negative) Urine Nitrite Negative (Negative) Urine Bilirubin Negative (Negative) Urine Urobilinogen Negative (Negative) Ur Leukocyte Esterase Negative (Negative) 06/30/19 Range/Units 13:30 WBC 9.68 (4.8-10.8) K/uL RBC 5.12 (4.7-6.1) M/uL Hgb 15.2 (14.0-18.0) g/dL Hct 42.6 (42-52) % MCV 83.2 (80-100) fL MCH 29.7 (25-34) pg MCHC 35.7 (32-36) g/dL RDW Std Deviation 42.5 (36.4-46.3) fL RDW Coeff of Jeremy 13.9 (11.5-14.5) % Plt Count 214 (130-400) K/uL MPV 10.1 (7.4-10.4) fL Immature Gran % (Auto) 0.6 % Neut % (Auto) 77.5 % Lymph % (Auto) 13.0 % [place] % (Auto) 8.2 % Eos % (Auto) 0.5 % Baso % (Auto) 0.2 % Immature Gran # (Auto) 0.06 H (0.00-0.02) K/uL Neut # (Auto) 7.50 H (1.4-6.5) K/uL Lymph # (Auto) 1.26 (1.2-3.4) K/uL [place] # (Auto) 0.79 H (0.11-0.59) K/uL Eos # (Auto) 0.05 (0-0.5) K/uL Baso # (Auto) 0.02 (0-0.2) K/uL Sodium (136-145) mmol/L Potassium (3.5-5.1) mmol/L Chloride (98-107) mmol/L Carbon Dioxide (21-32) mmol/L Anion Gap (3-11) BUN (7-18) mg/dl Creatinine (0.6-1.4) mg/dl Est Cr Clr Drug Dosing ml/min Est GFR ( Amer) Est GFR (Non-Af Amer) BUN/Creatinine Ratio (10-20) Glucose (70-99) mg/dl POC Glucose (70-99) Calcium (8.5-10.1) mg/dl Total Bilirubin (0.2-1) mg/dl AST (15-37) U/L ALT (12-78) U/L Alkaline Phosphatase (45-117) U/L Total Protein (6.4-8.2) gm/dl Albumin (3.4-5.0) gm/dl Globulin (2.5-4.0) gm/dl Albumin/Globulin Ratio (0.9-2) Lipase (73-393) U/L Beta-Hydroxybutyric Acd (0.2-2.81) mg/dl Urine Color Urine Appearance (Clear) Urine pH (4.5-7.5) Ur Specific [place] (1.000-1.030) Urine Protein (Negative) Urine Glucose (UA) (Negative) Urine Ketones (Negative) Urine Blood (Negative) Urine Nitrite (Negative) Urine Bilirubin (Negative) Urine Urobilinogen (Negative) Ur Leukocyte Esterase (Negative) (1) Acute appendicitis Acute appendicitis type: unspecified acute appendicitis type Qualified Code(s): K35.80 - Unspecified acute appendicitis
--- NOTE | 2019-06-30 14:59 | Anesthesiology Consultation ---
Date of Service June 30, 2019 HTN Poorly controlled DM CVA in 2008 Assessment & Plan (1) Encounter for pre-operative examination: Chart Review Chart Review: Acceptable Risk for Surgery and Patient NOT seen in Pre Admission Testing Consults Requested none ASA [id number] Proposed Anesthesia Anesthesia Type: General Risk / Benefits Reviewed With: PT / POA / Parent / Guardian, Accepts Plan and Informed Consent Obtained History Surgery Operation Date: 06/30/19 07:00 Proposed Procedures p Laparoscopic Appendectomy - Jun Prado MD Height/Weight Height: 5 ft 6 in Weight: 88 kg Allergies Allergy/AdvReac Type Severity Reaction Status Date / Time bee venom protein (honey bee) Allergy Unknown LOCALIZED Verified 06/30/19 14:44 SWELLING AT SITE No Known Drug Allergies Allergy Unknown NKDA Verified 06/30/19 14:44 Medications Home Medications Medication Instructions Recorded Confirmed Last Taken aspirin 325 mg PO DAILY 06/30/19 06/30/19 Unknown NPO Date Last Intake of Fluids: 06/30/19 Time Last Intake of Fluids: 12:00 Date Last Intake of Solids: 06/30/19 Time Last Intake of Solids: 12:00 Last Intake of Solids Comment: Pt. ate hot dogs Past Medical History Medical History Hx of wisdom tooth extraction HLD (hyperlipidemia) History of CVA (cerebrovascular accident) without residual deficits Stroke HTN (hypertension) Diabetes mellitus Exercise / Class Metabolic Activity II 4-5 Yardwork/Stairs/Walk up hill Past Family History Family History Father Hemophilia Prostate cancer Hypertension Mother Diabetes Past Surgical History Surgical History History of tonsillectomy History of cervical spinal surgery ACDF C5-6 12/12/2016 Past Anesthesia History No Hx of Anesthesia Complications and No Family Hx of Anesthesia Complications History of PONV No Hx of PONV and No Hx of Motion Sickness Social History Smoking Status: Never smoker Physical Exam Vital Signs Last Vital Signs Temp 36.7 C 06/30/19 14:28 Pulse 95 H 06/30/19 14:28 Resp 15 06/30/19 14:28 BP 161/86 H 06/30/19 14:28 Pulse Ox 96 06/30/19 14:28 ENMT Mouth: no dentition abnormality Thyromental Distance: > or= 3.5 Finger Breadths Mallampati Class: II Neck normal visual inspection and + facial hair (well groomed) Respiratory normal respiratory effort Auscultation: lungs clear to auscultation bilaterally Cardiovascular Rate/Rhythm: regular rate and regular rhythm Psychiatric Orientation: alert Testing Laboratory Results 06/30/19 13:30 06/30/19 13:30 Urine Color Yellow 06/30/19 13:30 Urine Appearance Clear (Clear) 06/30/19 13:30 Urine pH 5.0 (4.5-7.5) 06/30/19 13:30 Ur Specific [place] 1.037 (1.000-1.030) H 06/30/19 13:30 Urine Protein Negative (Negative) 06/30/19 13:30 Urine Glucose (UA) 3+ (Negative) H 06/30/19 13:30 Urine Ketones 2+ (Negative) H 06/30/19 13:30 Urine Nitrite Negative (Negative) 06/30/19 13:30 Ur Leukocyte Esterase Negative (Negative) 06/30/19 13:30 06/30/19 14:28 POC Glucose 365 H* Electrocardiogram Date: 06/30/19 Findings: + NSR @ (92)
[2019-06-30] MEDS ORDERED: CEFAZOLIN 2000MG 2,000 MG/15 ML SYR IV ONE (15:06)
[2019-06-30] MEDS: CEFAZOLIN 2,000 MG/15 ML IV PUSH IV ONE ×2 (15:10→19:44)
[2019-06-30] MEDS ORDERED: fentaNYL citrate 100 MCG/2 ML VIAL IV PRN (15:28)
[2019-06-30] MEDS ORDERED: ONDANSETRON INJ 2 MG/ML 2 ML VIAL IV PRN ×2 (15:28→18:24)
[2019-06-30] MEDS ORDERED: ePHEDrine sulfate 50 MG/ML AMP IV PRN (15:28)
[2019-06-30] MEDS ORDERED: PROMETHAZINE HCL 6.25 MG in SODIUM CHLORIDE 0.9% 50 ML IV PRN (15:28)
[2019-06-30] MEDS ORDERED: ATROPINE SULFATE 0.1 MG/ML 10ML SYR IV PRN (15:28)
--- NOTE | 2019-06-30 15:32 | History & Physical Report ---
Date of Service June 30, 2019 Assessment & Plan (1) Acute appendicitis: (2) RLQ abdominal pain: This is a 58-year-old male with significant past medical history of T2DM, HTN, HLD, diabetic polyneuropathy, history of CVA in 2008, depression with anxiety who presents to [facility] ED secondary to abdominal pain x1 day. CT scan abd/pelvis revealed: The appendix is dilated measuring 13 mm with wall thickening and adjacent stranding. No free air or collection. Remained afebrile, no leukocytosis No clinical signs of sepsis Seen and evaluated by General Surgery Dr. Prado - for laparoscopic appendectomy this afternoon post operatively to be admitted to telemetry given significant hyperglycemia pain/wound management per surg Antibiotics as per surgery - receiving pre op cefazolin diet and activity as directed by surgery encourage incentive spirometry monitor H/H (3) Diabetes mellitus: A1C was 8.2 in 2017 has been off meds for 2-3 years BSG 464 initially, now 365 elevated beta hydroxybutyric acid AG and electrolytes WNL, no signs of acidosis/dka obtain A1C in am. will obtain bsg immediately post operatively, if > [address] on insulin gtt pt likely to need discharged on oral diabetic med - has tolerated metformin in past consult family educator (4) HTN (hypertension): Blood pressure elevated on admission Pain likely contributing; however possibility of uncontrolled hypertension at baseline likely Previously had been on hydrochlorthiazide 25 mg daily and lisinopril 10 mg daily Pt discontinued on own approx 2-3 yrs ago (5) HLD (hyperlipidemia): per hx in epic not currently on statin Last total chol panel 2017 obtain lipid panel in a.m. (6) Stroke: pt reports hx of CVA in 2008 w/o residual deficits per neuro notes L thalamic infarct on ASA 325mg daily (7) Lung nodule < 6cm on CT: incidental finding on CT Scan: A few sub 5 mm nodules seen in right middle lobe and left lower lobe. pt denies hx of smoking recommend repeat CT chest in 1 year for follow up (8) DVT prophylaxis: SCD/TEDS post operatively Disposition: pt will be admitted to telemetry post operatively; anticipate discharge home when medically stable Follow up: PCP Dr. Lozano upon discharge Patient was seen and examined in collaboration with Dr. Hayes, please see addendum Starting 07/01/19 pt will be under the care of Dr. Shelley History of Present Illness Chief Complaint: abdominal pain x 1 day. Primary Care Provider: Dr. Lozano This is a 58-year-old male with significant past medical history of T2DM, HTN, HLD, diabetic polyneuropathy, history of CVA in 2008, depression with anxiety who presents to [facility] ED secondary to abdominal pain x1 day. Patient was initially seen in clinic today by Dr. Lozano to reestablish care after being lost to follow-up for a few years. He was initially treated with medication for hypertension and diabetes, specifically with metformin. He stopped these medications 2 to 3 years ago due to becoming, "too tired." Only taking ASA 325mg daily due to hx of CVA in 2008. Recently he has been checking his blood sugars noting him to be elevated in the 300s. "I was trying to treat things naturally." He opted to seek advice from PCP. During this visit he was reported that he woke up this morning with right lower quadrant abdominal pain. On exam patient was noted to be exquisitely tender; therefore a CT scan of abdomen pelvis was ordered. CT scan of abdomen pelvis revealed acute appendicitis and he was referred to ED for further evaluation. Currently patient complains of right lower quadrant abdominal pain, worse with movement, improved with rest. Pain currently 5/10. Denies recent illness, f/c/s, dizziness, lightheaded, chest pain, sob, palpitations, n/v/d, melena, hematochezia, dysuria, increased urg/freq with urination. In ED pt with already known acute appendicitis confirmed on CT scan prior to arrival. Patient was hemodynamically stable in ED. He was actually hypertensive with BP 161/86, heart rate 95, afebrile 36.7. He was significantly hyperglycemic with a blood glucose 464. Electrolyte otherwise unremarkable, except for sodium 133, which corrected was 142. Urinalysis performed which revealed +3 glucose, +2 ketones, spec gravity 1.037. He received 1L IVF while in ED. Glucose improved slightly to 365. He was seen and evaluated by general surgery team Dr. Prado and recommended for admission for urgent appendectomy and tx of hyperglycemia. Allergies Allergy/AdvReac Type Severity Reaction Status Date / Time bee venom protein (honey bee) Allergy Unknown LOCALIZED Verified 06/30/19 14:44 SWELLING AT SITE No Known Drug Allergies Allergy Unknown NKDA Verified 06/30/19 14:44 Home Medications Home Medications Medication Instructions Recorded Confirmed Type aspirin 325 mg PO DAILY 06/30/19 06/30/19 History Past Med/Surg History Medical History Hx of wisdom tooth extraction HLD (hyperlipidemia) History of CVA (cerebrovascular accident) without residual deficits Stroke HTN (hypertension) Diabetes mellitus Surgical History History of tonsillectomy History of cervical spinal surgery ACDF C5-6 12/12/2016 Family History Father Hemophilia Prostate cancer Hypertension Mother Diabetes Social History Preferred Language: Armenian Communication Ability: Effective Beliefs That Will Affect Care: None marital status: Current Living Situation: Spouse Current Living Situation Comment: spouse is disabled current occupational status: employed Other Information That Helps Us Care for You: No Feels Safe at Home: Yes Safety Concerns: Feels Safe At This Time Smoking Status: Never smoker Hx Alcohol Use: Yes Alcohol type: beer Alcohol Intake Frequency: Rarely Hx Substance Use: No Review of Systems Review of Systems: All systems reviewed & are unremarkable except as noted in HPI & below Results & Data Vital Signs (Past 12 Hours) Vital Signs Temp Pulse Pulse Pulse Resp BP BP 06/30/19 14:28 36.7 C 95 H 15 161/86 H 06/30/19 14:14 99 H 20 177/88 H 06/30/19 13:37 100 H 20 176/84 H 06/30/19 12:46 36.7 C 111 H 19 183/109 H Pulse Ox 06/30/19 14:28 96 06/30/19 14:14 94 06/30/19 13:37 95 06/30/19 12:46 93 Laboratory Results Short CBC 06/30/19 Range/Units 13:30 WBC 9.68 (4.8-10.8) K/uL Hgb 15.2 (14.0-18.0) g/dL Hct 42.6 (42-52) % Plt Count 214 (130-400) K/uL BMP 06/30/19 13:30 Sodium 133 L Potassium 4.2 Chloride 98 Carbon Dioxide 26 BUN 13 Creatinine 1.06 Glucose 464 H* Calcium 9.4 Liver Function 06/30/19 Range/Units 13:30 Total Bilirubin 0.8 (0.2-1) mg/dl AST 9 L (15-37) U/L ALT 24 (12-78) U/L Alkaline Phosphatase 83 (45-117) U/L Albumin 4.0 (3.4-5.0) gm/dl Urine 06/30/19 Range/Units 13:30 Urine Color Yellow Urine Appearance Clear (Clear) Urine pH 5.0 (4.5-7.5) Ur Specific [place] 1.037 H (1.000-1.030) Urine Protein Negative (Negative) Urine Glucose (UA) 3+ H (Negative) Diagnostic Findings CT scan abd/pelvis: EXAM EXAM: CT ABD/PELVIS WO IV/ORAL CONTRAST DATE and TIME: 06/30/2019 11:02 am HISTORY CLINICAL INFORMATION: Abd pain, appendicitis suspected TECHNIQUE Oral Contrast: Oral contrast was not administered. IV Contrast: No IV Contrast used Abdomen/Pelvis: without intravenous contrast COMPARISON No comparisons FINDINGS LOWER CHEST: HEART(visualized): Coronary calcification. LUNG BASES: A few sub 5 mm nodules seen in right middle lobe and left lower lobe. ABDOMEN/PELVIS: LINES AND DEVICES: None LIVER: The liver is enlarged measuring 20 cm in craniocaudal dimension. Low attenuation of liver is suggestive of steatosis. BILE DUCTS: Unremarkable GALLBLADDER: Unremarkable PANCREAS: Unremarkable SPLEEN: The spleen is mildly enlarged measuring 15.4 cm in AP dimension. ADRENALS: Unremarkable KIDNEYS/URETERS: Unremarkable BLADDER: Unremarkable BOWEL: The appendix is dilated measuring 13 mm with wall thickening and adjacent stranding. No free air or collection. LYMPH NODES: Unremarkable VESSELS: Circumaortic left renal vein. REPRODUCTIVE ORGANS: Unremarkable PERITONEUM/RETROPERITONEUM: Unremarkable ABDOMINAL WALL/SOFT TISSUES: Unremarkable BONES: Degenerative osseous changes. Impression IMPRESSION 1. Findings compatible with acute appendicitis. No free air or fluid collection. 2. A few lung nodules. Consider follow-up CT in 1 year to assess stability if there are high risk factors. Medications Administered Discontinued Medications Cefazolin Sodium (Ancef 2000mg) Confirm Administered Dose 2,000 mg IV .STK-MED ONE Stop: 06/30/19 15:07 Last Admin: 06/30/19 15:10 Dose: 2,000 mg Documented by: [id number] Sodium Chloride (Nss 1000ml) 1,000 mls @ 999 mls/hr IV .Q1H1M ONE Stop: 06/30/19 14:11 Last Infusion: 06/30/19 14:19 Dose: 0 mls/hr Documented by: [id number] Admin: 06/30/19 13:33 Dose: 999 mls/hr Documented by: [id number] Insulin Aspart (Novolog Per Unit) Confirm Administered Dose 10 units .ROUTE . [employer] ONE Stop: 06/30/19 14:41 Last Admin: 06/30/19 14:50 Dose: 10 units Documented by: [id number] Cosigned by: [id number] Code Status & VTE Plan Code Status Full Code VTE Prophylaxis Plan VTE Prophylaxis will be ordered: Yes Supervising Physician Co-Signing Physician Notes HISTORY: Record reviewed. Patient interviewed and examined. Care coordinated with Rosy Linton PA-C. Please refer to her documentation for complete history. Briefly, 58-year-old male with history of hypertension and diabetes mellitus type 2. He was seen in clinic today and complained of abdominal pain. CT of the abdomen & pelvis was performed which demonstrated findings consistent with acute appendicitis, no free air or fluid collection. A few lung nodules were also noted at the lung bases, measuring up to 5 mm. He was referred to the ED and evaluated by General Surgery and taken to the operating room for appendectomy. Blood sugars were elevated and he received subcutaneous NovoLog in the OR and PACU. Seen by the undersigned postoperatively. Feeling well. No chest pain. Minimal cough. No shortness of breath. No nausea or vomiting. EXAM: General- no distress Lungs- clear to auscultation; no respiratory distress Cardiovascular- RRR; I/ systolic murmur LSB; no gallop; no JVD; no pretibial edema Abdomen- quiet bowel sounds, soft Extremities- no cyanosis; no calf tenderness Neuro- alert, oriented Skin- warm & dry DATA: Hemoglobin 15.2, white count 9680, platelet count 214,000. Sodium 133, potassium 4.2, chloride 98, CO2 26, BUN 13, creatinine 1.06, random glucose 464. Fingerstick blood sugar at 1849 was 224. Other lab studies as noted. EKG performed at [facility] earlier today at 0945 reviewed and demonstrated normal sinus rhythm at 92/minute, no acute ST or T wave abnormali ties. ASSESSMENT AND PLAN: Acute appendicitis without perforation. Laparoscopic appendectomy performed by Dr. Prado. Diabetes mellitus type 2. Patient had been on metformin in the past, but tapered and discontinued because of side effects. Random blood sugar in ED was 464. Patient received at least 3 doses of NovoLog subcutaneously perioperatively in the OR and PACU. Repeat blood sugar this evening 224. Hemoglobin A1c was drawn in clinic earlier today-results pending. Management of elevated blood sugars with basal/bolus insulin per protocol. Importance of glycemic control discussed. Diabetes education during hospital stay and then as outpatient. History of hypertension, but not taking antihypertensive medications at this time. Blood pressure was elevated at time of presentation to the ED, but blood pressure this evening 136/73. Follow and titrate therapy. Small pulmonary nodules up to 5 mm noted in the lung bases on CT of abdomen. Patient is a non-smoker. Radiographic follow-up per guidelines. Please refer to TULIO Linton's documentation for discussion of other issues. (1) Acute appendicitis Acute appendicitis type: unspecified acute appendicitis type Qualified Code(s): K35.80 - Unspecified acute appendicitis
[2019-06-30] MEDS ORDERED: LABETALOL HCL IV 5 MG/ML 20ML IV ONE ×8 (16:08→16:29)
[2019-06-30] MEDS ORDERED: NEOSTIGMINE METHYLSULFATE 5 MG/5 ML SYR ONE (16:11)
[2019-06-30] MEDS ORDERED: GLYCOPYRROLATE 0.2 MG/ML VIAL ONE (16:11)
[2019-06-30] MEDS ORDERED: INSULIN ASPART 100 UNITS/ML 3 ML PEN SC SCH (16:30)
--- NOTE | 2019-06-30 16:39 | Post Operative Brief Note ---
Immediate Post Op Note v1 Date of Surgery June 30, 2019 Pre & Post Diagnosis Operation Date: 06/30/19 07:00 Pre-Op Diagnosis: Acute appendicitis. Post-Op Diagnosis: Acute appendicitis. I identified the patient and participated in the time-out.: Yes Procedure Operation Date: 06/30/19 07:00 Actual Procedures p Laparoscopic Appendectomy - Jun Prado MD Surgeon Jun Prado MD Heeler Azalea Pearl PA-C Estimated Blood Loss 12 Findings Consistent with Post-Op Diagnosis Specimens Appendix Drains Mccarthy Catheter Anesthesia Type General Complications none
[2019-06-30] MEDS ORDERED: INSULIN ASPART PER SC STA (17:00)
[2019-06-30] MEDS ORDERED: INSULIN ASPART PER UNIT 10 UNITS in SYRINGE 0 ML SC STA (17:56)
--- NOTE | 2019-06-30 18:01 | Anesthesiology Progress Note ---
Date of Service June 30, 2019 Anesthesia Post Procedure Vital Signs Vital Signs: Temp Pulse Pulse Pulse Pulse Resp BP 06/30/19 17:45 36.8 C 75 15 06/30/19 17:34 77 17 06/30/19 17:24 74 19 06/30/19 17:14 74 18 06/30/19 17:04 74 23 06/30/19 16:54 36.3 C L 79 20 06/30/19 14:28 36.7 C 95 H 15 06/30/19 14:14 99 H 20 177/88 H 06/30/19 13:37 100 H 20 06/30/19 12:46 36.7 C 111 H 19 183/109 H BP BP Pulse Ox 06/30/19 17:45 160/79 H 99 06/30/19 17:34 152/78 H 94 06/30/19 17:24 159/83 H 99 06/30/19 17:14 154/86 H 97 06/30/19 17:04 150/83 H 100 06/30/19 16:54 156/89 H 100 06/30/19 14:28 161/86 H 96 06/30/19 14:14 94 06/30/19 13:37 176/84 H 95 06/30/19 12:46 93 Pain Intensity Right Abdomen: Pain Intensity: 3 Transfer of Care Handoff Completed per policy Notes Mental Status: alert / awake / arousable Patient Amnestic to Procedure: Yes Nausea / Vomiting: adequately controlled Pain: adequately controlled Airway Patency, RR, SpO2: stable & adequate BP & HR: stable & adequate Hydration State: stable & adequate Anesthetic Complications: no major complications apparent and Pt Satisfied with anesthetic care Notes: The patient's BSG was 464 preoperatively. He was given 10 units of insulin. His first BSG in PACU was 311. He was given 14 units Novolog insulin SC. A recheck of his BSG was 289. He was given a further 10 units of Novolog insulin SC. He is otherwise awake and his vital signs are stable. Dr. Hayes was given report on the patient. The patient will go to telemetry where his BSG will be monitored overnight.
[2019-06-30] MEDS ORDERED: MoRPHine SULFATE 4 MG/ML 1 ML CARP\\VIAL IV PRN (18:24)
[2019-06-30] MEDS ORDERED: GLUCAGON FOR INJ 1 MG VIAL SQ PRN (18:24)
[2019-06-30] MEDS ORDERED: GLUCOSE 10 TABS/TUBE PO PRN (18:24)
[2019-06-30] MEDS ORDERED: ACETAMINOPHEN 325 MG TAB PO PRN (18:24)
[2019-06-30] MEDS ORDERED: GLUCOSE 40% GEL 15 GM TUBE PO PRN ×2 (18:24→18:59)
[2019-06-30] MEDS ORDERED: ALUMINUM/MAGNESIUM SUSP 30 ML UDC PO PRN (18:24)
[2019-06-30] MEDS ORDERED: CARBOHYDRATES FOR HYPOGLYCEMIA PO PRN (18:24)
[2019-06-30] MEDS ORDERED: DEXTROSE 50% 50 ML SYRINGE IV PRN (18:24)
[2019-06-30] MEDS ORDERED: MAGNESIUM HYDROXIDE SUSP 30 ML UDC PO PRN (18:24)
[2019-06-30] MEDS ORDERED: POLYETHYLENE (MIRALAX) 17 GM PACK PO PRN (18:24)
[2019-06-30] MEDS ORDERED: OXYCODONE/ACETAMINOPHEN 5mg/325mg TAB PO PRN (18:24)
[2019-06-30] MEDS: SODIUM CHLORIDE 0.9% 1000ML 1,000 ML IV SCH (19:47)
--- NOTE | 2019-06-30 20:08 | Operative Report ---
DATE OF OPERATION: 06/30/2019 PREOPERATIVE DIAGNOSIS: Acute appendicitis. POSTOPERATIVE DIAGNOSIS: Acute appendicitis. PROCEDURE: Laparoscopic appendectomy. SURGEON: Jun Prado MD. BOND UNDERWRITER: Azalea Pearl PA-C. FINDINGS: The appendix was short. The appendix all but for 1 cm of the base was firm, hyperemic and edematous. It was densely adherent to the antimesenteric fat of the distal terminal ileum. It was also adherent to the cecum laterally. There was no evidence of perforation or abscess. TECHNIQUE: The patient was given a general anesthetic and the area was prepped and draped in the usual sterile fashion. Transverse incision was made below the umbilicus, carried down through the subcutaneous tissue. The peritoneum was grasped. It was difficult to identify the peritoneum due to the depth but we were eventually able to grasp it, incised and placed the introducer bluntly. The abdomen was then insufflated to a pressure of 15 mmHg with carbon dioxide. The lower midline introducer was placed under direct vision through small skin incision. Traction was placed superiorly on the cecum and the appendix was seen extending off the inferior side of the cecum. The left lower quadrant introducer was placed under direct vision through small skin incision. I was able to grasp the mesoappendix and elevate it. I was then able to dissect the antimesenteric fat of the very terminal ileum off the medial side. I then was able to then expose the base of the appendix. Further dissection was carried out bluntly dissecting the mesoappendix away from the cecum and the lateral abdominal wall. This allowed further elevation. I was unable to establish a plane between the mesoappendix and the appendix. I could not completely elevate the mesoappendix and so I divided the appendix at the base. The cecum in that area was normal. It allowed me then to further elevate the base of the appendix and identify attachments to the lateral abdominal wall and also flimsy adhesions to the cecum, which were able to be taken down with ease and without cautery. That then isolated the mesoappendix, which was then divided with the firing of the Endo-SWETA stapler. The appendix was placed into an Endobag and brought out through the left lower quadrant introducer site. That introducer was replaced. The right lower quadrant and pelvis were irrigated and irrigation was removed and that was repeated until the return was clear. The staple line on the cecum was then visualized. There was no bleeding. The areas of dissection were inspected and the staple line on the mesoappendix was inspected and there was no bleeding. The right upper quadrant was inspected and there was no irrigation in that area. The gas was then allowed to escape and the introducers were removed. It must be pointed out that the skin was anesthetized with 0.5% Marcaine prior to each of the incisions being made. The fascia of the umbilical and left lower quadrant introducer sites was closed with interrupted 0 Vicryl and skin of all the incisions was closed with 4-0 Monocryl in either an interrupted or running subcuticular fashion. The skin was cleansed, dried, benzoin placed, Steri-Strips applied. Estimated blood loss was 12 mL. Sponge, needle and instrument counts were correct prior to closure. The patient tolerated the surgical procedure without complication and was transferred to recovery. I attest to the content of the Intraoperative Record and any orders documented therein. Any exception s are noted below.
--- NOTE | 2019-06-30 20:26 | Emergency Department Note ---
Entered by Zhanna Soto acting as a scribe for History of Present Illness General Chief complaint: Abdominal Pain Stated complaint: ABDOMINAL PAIN, REFERRED BY DR Raymundo Seen by Provider: 06/30/19 13:06 Source: patient History of Present Illness Onset (ago): day(s) 1 Location: abdomen (right lower ) Radiation: non-radiation Pain Consistency: + other (persistent ) Relieved By: + rest Exacerbated By: + movement Associated symptoms: + other (negative back pain; negative burning with urination; negative blood in his urine); no fever/chills and no nausea/vomiting The patient is a 58 year old male who presents to the Emergency Room with complaints of persistent right lower abdominal pain that began yesterday morning. The patient denies radiation of his pain. He reports that his pain is exacerbated with movement and relieved with rest. The patient denies back pain, fever, nausea, vomiting, burning with urination, and blood in his urine. He states that he saw his PCP this morning and a CT was ordered. The patient states that he was told after this CT that he has appendicitis and was referred to the ED. The patient reports that he has diabetes and his blood sugar has been in the 300s recently. Home Medications Home Medications Medication Instructions Recorded Confirmed Type aspirin 325 mg PO DAILY 06/30/19 06/30/19 History Allergies Allergy/AdvReac Type Severity Reaction Status Date / Time bee venom protein (honey bee) Allergy Unknown LOCALIZED Verified 06/30/19 14:44 SWELLING AT SITE No Known Drug Allergies Allergy Unknown NKDA Verified 06/30/19 14:44 Past Med/Surg History Medical History Hx of wisdom tooth extraction HLD (hyperlipidemia) History of CVA (cerebrovascular accident) without residual deficits Stroke HTN (hypertension) Diabetes mellitus Surgical History History of tonsillectomy History of cervical spinal surgery ACDF C5-6 12/12/2016 Family History Father Hemophilia Prostate cancer Hypertension Mother Diabetes Social History Preferred Language: Danish Communication Ability: Effective Beliefs That Will Affect Care: None marital status: Current Living Situation: Spouse Current Living Situation Comment: spouse is disabled current occupational status: employed Other Information That Helps Us Care for You: No Feels Safe at Home: Yes Safety Concerns: Feels Safe At This Time Smoking Status: Never smoker Hx Alcohol Use: Yes Alcohol type: beer Alcohol Intake Frequency: Rarely Hx Substance Use: No Review of Systems See HPI for pertinent positives & negatives. and A total of 10 systems reviewed and were otherwise negative Physical Exam Vital Signs Vital Signs - 24 hr 06/30/19 12:46 06/30/19 13:37 06/30/19 14:14 Temperature 36.7 C Temperature Source Oral Sepsis Recent Fever Within 48 Hours No Sepsis Action Taken by Nursing No Action Required Pulse Rate 111 H 99 H Pulse Rate [Left Finger] Pulse Rate [Left] 100 H Respiratory Rate 19 20 20 Respiratory Effort / Characteristics Non-Labored Spontaneous Non-Labored Respiratory Depth Normal Normal Respiratory Pattern Regular Blood Pressure 183/109 H 177/88 H Blood Pressure [Left Arm] 176/84 H Blood Pressure Mean 133 Blood Pressure Mean [Left Arm] 114 Blood Pressure Position Sitting Blood Pressure Position [Left Arm] Pulse Oximetry 93 95 94 Oxygen Delivery Method Room Air Room Air Room Air 06/30/19 14:28 Temperature 36.7 C Temperature Source Oral Sepsis Recent Fever Within 48 Hours Sepsis Action Taken by Nursing Pulse Rate Pulse Rate [Left Finger] 95 H Pulse Rate [Left] Respiratory Rate 15 Respiratory Effort / Characteristics Non-Labored Spontaneous Respiratory Depth Normal Respiratory Pattern Regular Blood Pressure Blood Pressure [Left Arm] 161/86 H Blood Pressure Mean Blood Pressure Mean [Left Arm] 111 Blood Pressure Position Blood Pressure Position [Left Arm] Semi-fowlers Pulse Oximetry 96 Oxygen Delivery Method Room Air General: Non-ill appearing middle aged male in no acute distress. HEENT: Normal cephalic atraumatic. Pupils are equal round and reactive to light. Extraocular movements are intact. Oropharynx is pink with moist mucous membranes. No swelling of the mouth lips or tongue. Neck: Supple with a midline trachea. No meningeal signs or stiffness, no JVD or bruits. No Stridor. Chest: Clear to auscultation bilaterally. No wheezes or rhonchi. No increased work of breathing. Heart: regular rate and rhythm. Abdomen: Moderately tender in the right lower abdomen. No peritonitis. Soft, nondistended without rebound guarding or rigidity. Extremities: No cyanosis clubbing or edema. No calf tenderness or asymmetry Spine/Back. Non tender to palpation. No CVA tenderness Skin: Good turgor without rashes. Neurologic exam: Cranial nerves two through 12 are intact. Motor and sensation are intact and symmetrical throughout. Course 1308: Past medical records reviewed. The patient was evaluated in room B6. A complete history and physical exam was performed. 1324: Upon reevaluation, the patient is resting comfortably. The IV is being placed currently. 1328: I discussed the case with Riya Castañeda-General Surgery [facility] who accepts the patient for surgery under Dr. Prado-General Surgery service. Administered Medications Sodium Chloride (Nss 1000ml) 1,000 mls @ 125 mls/hr IV .Q8H FABBY Stop: 07/30/19 18:23 Last Admin: 06/30/19 19:47 Dose: 125 mls/hr Documented by: [id number] Discontinued Medications Bupivacaine HCl (Marcaine 0.5% Mpf) Confirm Administered Dose 30 ml .ROUTE .STK- MED ONE Stop: 06/30/19 14:25 Last Admin: 06/30/19 16:35 Dose: 30 ml Documented by: [id number] Cefazolin Sodium (Ancef) Confirm Administered Dose 1,000 mg .ROUTE .STK-MED ONE Stop: 06/30/19 14:26 Last Admin: 06/30/19 16:30 Dose: 1,000 mg Documented by: [id number] Cefazolin Sodium (Ancef 2000mg) Confirm Administered Dose 2,000 mg IV .STK-MED ONE Stop: 06/30/19 15:07 Last Admin: 06/30/19 19:44 Dose: Not Given Documented by: [id number] Admin: 06/30/19 15:10 Dose: 2,000 mg Documented by: [id number] Heparin Sodium (Porcine) (Heparin Iv Bolus ([employer] Chief Use Only)) Confirm Administered Dose 10,000 units .ROUTE .STK-MED ONE Stop: 06/30/19 14:25 Last Admin: 06/30/19 16:29 Dose: 5,000 units Documented by: [id number] Sodium Chloride (Nss 1000ml) 1,000 mls @ 999 mls/hr IV .Q1H1M ONE Stop: 06/30/19 14:11 Last Infusion: 06/30/19 14:19 Dose: 0 mls/hr Documented by: [id number] Admin: 06/30/19 13:33 Dose: 999 mls/hr Documented by: [id number] Insulin Aspart 14 units/ (Syringe) 0.14 mls @ 0 mls/min SC NOW STA Stop: 06/30/19 17:01 Last Admin: 06/30/19 17:04 Dose: 14 mls/min Documented by: [id number] Insulin Aspart (Novolog Per Unit) Confirm Administered Dose 10 units .ROUTE .STK-MED ONE Stop: 06/30/19 14:41 Last Admin: 06/30/19 14:50 Dose: 10 units Documented by: [id number] Cosigned by: [id number] Insulin Aspart (Novolog Per Unit) Confirm Administered Dose 14 units .ROUTE .STK-MED ONE Stop: 06/30/19 17:01 Last Admin: 06/30/19 19:43 Dose: Not Given Documented by: [id number] Insulin Aspart (Novolog Per Unit) Confirm Administered Dose 10 units .ROUTE .STK-MED ONE Stop: 06/30/19 17:35 Last Admin: 06/30/19 17:37 Dose: 10 units Documented by: [id number] Cosigned by: [id number] Medical Decision Making Differential Diagnosis Differential diagnoses include appendicitis, diverticulitis, sepsis, UTI, electrolyte or metabolic abnormality, and others were considered. Medical Records Attestation: I reviewed the patient's medical records. Home Medications Current Medication List: was personally reviewed by me Laboratory Data Attestation: I reviewed the patient's lab results. Result diagrams: 06/30/19 13:30 06/30/19 13:30 Lab Results 06/30/19 06/30/19 06/30/19 Range/Units 13:30 13:30 13:30 WBC 9.68 (4.8-10.8) K/uL RBC 5.12 (4.7-6.1) M/uL Hgb 15.2 (14.0-18.0) g/dL Hct 42.6 (42-52) % MCV 83.2 (80-100) fL MCH 29.7 (25-34) pg MCHC 35.7 (32-36) g/dL RDW Std Deviation 42.5 (36.4-46.3) fL RDW Coeff of Jeremy 13.9 (11.5-14.5) % Plt Count 214 (130-400) K/uL MPV 10.1 (7.4-10.4) fL Immature Gran % (Auto) 0.6 % Neut % (Auto) 77.5 % Lymph % (Auto) 13.0 % Payne % (Auto) 8.2 % Eos % (Auto) 0.5 % Baso % (Auto) 0.2 % Immature Gran # (Auto) 0.06 H (0.00-0.02) K/uL Neut # (Auto) 7.50 H (1.4-6.5) K/uL Lymph # (Auto) 1.26 (1.2-3.4) K/uL Payne # (Auto) 0.79 H (0.11-0.59) K/uL Eos # (Auto) 0.05 (0-0.5) K/uL Baso # (Auto) 0.02 (0-0.2) K/uL Sodium 133 L (136-145) mmol/L Potassium 4.2 (3.5-5.1) mmol/L Chloride 98 (98-107) mmol/L Carbon Dioxide 26 (21-32) mmol/L Anion Gap 9.0 (3-11) BUN 13 (7-18) mg/dl Creatinine 1.06 (0.6-1.4) mg/dl Est Cr Clr Drug Dosing 80.9 ml/min Est GFR ( Amer) 90.5 Est GFR (Non-Af Amer) 78.1 BUN/Creatinine Ratio 12.4 (10-20) Glucose 464 H* (70-99) mg/dl POC Glucose (70-99) Calcium 9.4 (8.5-10.1) mg/dl Total Bilirubin 0.8 (0.2-1) mg/dl AST 9 L (15-37) U/L ALT 24 (12-78) U/L Alkaline Phosphatase 83 (45-117) U/L Total Protein 7.9 (6.4-8.2) gm/dl Albumin 4.0 (3.4-5.0) gm/dl Globulin 3.9 (2.5-4.0) gm/dl Albumin/Globulin Ratio 1.0 (0.9-2) Lipase 258 (73-393) U/L Beta-Hydroxybutyric Acd 12.18 H (0.2-2.81) mg/dl Urine Color Yellow Urine Appearance Clear (Clear) Urine pH 5.0 (4.5-7.5) Ur Specific Carroll 1.037 H (1.000-1.030) Urine Protein Negative (Negative) Urine Glucose (UA) 3+ H (Negative) Urine Ketones 2+ H (Negative) Urine Blood Negative (Negative) Urine Nitrite Negative (Negative) Urine Bilirubin Negative (Negative) Urine Urobilinogen Negative (Negative) Ur Leukocyte Esterase Negative (Negative) 06/30/19 Range/Units 14:28 WBC (4.8-10.8) K/uL RBC (4.7-6.1) M/uL Hgb (14.0-18.0) g/dL Hct (42-52) % MCV (80-100) fL MCH (25-34) pg MCHC (32-36) g/dL RDW Std Deviation (36.4-46.3) fL RDW Coeff of Jeremy (11.5-14.5) % Plt Count (130-400) K/uL MPV (7.4-10.4) fL Immature Gran % (Auto) % Neut % (Auto) % Lymph % (Auto) % Payne % (Auto) % Eos % (Auto) % Baso % (Auto) % Immature Gran # (Auto) (0.00-0.02) K/uL Neut # (Auto) (1.4-6.5) K/uL Lymph # (Auto) (1.2-3.4) K/uL Payne # (Auto) (0.11-0.59) K/uL Eos # (Auto) (0-0.5) K/uL Baso # (Auto) (0-0.2) K/uL Sodium (136-145) mmol/L Potassium (3.5-5.1) mmol/L Chloride (98-107) mmol/L Carbon Dioxide (21-32) mmol/L Anion Gap (3-11) BUN (7-18) mg/dl Creatinine (0.6-1.4) mg/dl Est Cr Clr Drug Dosing ml/min Est GFR ( Amer) Est GFR (Non-Af Amer) BUN/Creatinine Ratio (10-20) Glucose (70-99) mg/dl POC Glucose 365 H* (70-99) Calcium (8.5-10.1) mg/dl Total Bilirubin (0.2-1) mg/dl AST (15-37) U/L ALT (12-78) U/L Alkaline Phosphatase (45-117) U/L Total Protein (6.4-8.2) gm/dl Albumin (3.4-5.0) gm/dl Globulin (2.5-4.0) gm/dl Albumin/Globulin Ratio (0.9-2) Lipase (73-393) U/L Beta-Hydroxybutyric Acd (0.2-2.81) mg/dl Urine Color Urine Appearance (Clear) Urine pH (4.5-7.5) Ur Specific Carroll (1.000-1.030) Urine Protein (Negative) Urine Glucose (UA) (Negative) Urine Ketones (Negative) Urine Blood (Negative) Urine Nitrite (Negative) Urine Bilirubin (Negative) Urine Urobilinogen (Negative) Ur Leukocyte Esterase (Negative) Blood Pressure Blood Pressure Findings: Elevated blood pressure Blood Pressure Disposition: further management by hospitalist (surgeon) MDM Narrative This patient comes in as described above he has had right lower quadrant abdominal pain since yesterday. He was seen his primary care physician's office and they did order an outpatient CT which showed findings consistent with acute appendicitis that is unruptured. They called him and sent him over here. He did eat lunch about 2 hours prior to arrival. He denies any fever chills or anorexia. On my exam, he is tender in the right lower abdomen and his exam is consistent with appendicitis. I dd get the report from [facility] and it does confirm the reading of appendicitis. His blood work shows a normal white count and hemoglobin he did have a significant elevated blood sugar in the 460s. He is not acidotic. I did consult surgery they prompt came and saw him and also can have medicine involved in his care as well given his hyperglycemia. He was kept n.p.o. and I did start IV fluids as well. Impression & Plan Acute appendicitis, RLQ abdominal pain, Diabetes, Acute hyperglycemia Discharge Plan Visit Data Chief Complaint: Abdominal Pain Stated Complaint: ABDOMINAL PAIN, REFERRED BY ED Provider: Daniel Urbina Discharge Problem: Acute appendicitis, RLQ abdominal pain, Diabetes, Acute hyperglycemia Patient Disposition: Being Evaluated by Surgeon Discharge Instructions Interventions: ED Discharge Assessment Last Done: 06/30/19 14:14 The scribe's documentation has been prepared under my direction and personally reviewed by me in its entirety. I confirm that the note above accurately reflects all work, treatment, procedures, and medical decision making performed by me.
[2019-06-30] MEDS: INSULIN GLARGINE SOLOSTAR 100 UNITS/ML 3 ML PEN SC SCH (20:46)
[2019-06-30] MEDS: INSULIN ASPART 100 UNITS/ML 3 ML PEN SC SCH (20:46)
[2019-07-01] MEDS: SODIUM CHLORIDE 0.9% 1000ML 1,000 ML IV SCH (04:06)
--- NOTE | 2019-07-01 07:08 | Discharge Summary ---
Date of Service July 01, 2019 Admission HPI Per Admitting Provider This is a 58-year-old male with significant past medical history of T2DM, HTN, HLD, diabetic polyneuropathy, history of CVA in 2008, depression with anxiety who presents to [facility] ED secondary to abdominal pain x1 day. Patient was initially seen in clinic today by Dr. Lozano to reestablish care after being lost to follow-up for a few years. He was initially treated with medication for hypertension and diabetes, specifically with metformin. He stopped these medications 2 to 3 years ago due to becoming, "too tired." Only taking ASA 325mg daily due to hx of CVA in 2008. Recently he has been checking his blood sugars noting him to be elevated in the 300s. "I was trying to treat things naturally." He opted to seek advice from PCP. During this visit he was reported that he woke up this morning with right lower quadrant abdominal pain. On exam patient was noted to be exquisitely tender; therefore a CT scan of abdomen pelvis was ordered. CT scan of abdomen pelvis revealed acute a ppendicitis and he was referred to ED for further evaluation. Currently patient complains of right lower quadrant abdominal pain, worse with movement, improved with rest. Pain currently 5/10. Denies recent illness, f/c/s, dizziness, lightheaded, chest pain, sob, palpitations, n/v/d, melena, hematochezia, dysuria, increased urg/freq with urination. In ED pt with already known acute appendicitis confirmed on CT scan prior to arrival. Patient was hemodynamically stable in ED. He was actually hypertensive with BP 161/86, heart rate 95, afebrile 36.7. He was significantly hyperglycemic with a blood glucose 464. Electrolyte otherwise unremarkable, except for sodium 133, which corrected was 142. Urinalysis performed which revealed +3 glucose, +2 ketones, spec gravity 1.037. He received 1L IVF while in ED. Glucose improved slightly to 365. He was seen and evaluated by general surgery team Dr. Prado and recommended for admission for urgent appendectomy and tx of hyperglycemia. Admission Exam Per Admitting Provider General- no distress Lungs- clear to auscultation; no respiratory distress Cardiovascular- RRR; I/ systolic murmur LSB; no gallop; no JVD; no pretibial edema Abdomen- quiet bowel sounds, soft Extremities- no cyanosis; no calf tenderness Neuro- alert, oriented Skin- warm & dry Principal Diagnosis Acute Appendicitis New Onset DM II Obesity HLD HTN Hx of CVA Discharge Exam ROS-No Headache, No Visual Changes, No Nausea, No Vomiting, No Fever, No Chills, No Neck Pain or Stiffness, No Chest Pain, No Palpitations, No SOB, No ALMENDAREZ, No Cough, No Sputum, No Wheezing, + Abdominal Pain, No Diarrhea, No Hematemesis, No Hemoptysis, No Unexpected Weight Loss, No Flank pain, No Melena, No Hematochezia, No Frequency, No Urgency, No Burning, No Hematuria, No Rashes, No Diaphoresis. Appetite is Normal Physical Exam Gen-AAO x 3, NAD, Afebrile Head-NCAT, EOMI, PERRLA, Anicteric Sclera, No Posterior Pharyngeal Erythema Neck-Supple, No JVD, No Thyromegaly, No Masses, No LAD, No Bruits Lungs-Clear to Auscultation Bilaterally, No Rales, No Rhonchi, No Wheezing, No Crepitus Chest-No S4, +S1, +S2, No S3, No Murmurs, No Rubs, No Gallops, No Ectopy Abdomen-Soft, Sore, Bowel Sounds Present, Non Distended, No Hepatomegaly, No Splenomegaly, No Palpable Masses, No Rebound, No Rigidity, No Guarding Musculoskeletal-Full Range of Motion Bilaterally, No CVAT Extremities-No Cyanosis, No Clubbing, No Edema Nuero-Cranial Nerves II-XII grossly intact, Motor WNL, DTRs WNL, Strength WNL, Non Focal Psych-Normal Mood Discharge Data Allergies Allergy/AdvReac Type Severity Reaction Status Date / Time bee venom protein (honey bee) Allergy Unknown LOCALIZED Verified 06/30/19 14:44 SWELLING AT SITE No Known Drug Allergies Allergy Unknown NKDA Verified 06/30/19 14:44 Consultations 06/30/19 13:29 ED Decision to Admit Stat 06/30/19 15:53 ED Decision to Admit Stat Procedures Performed Operation Date: 06/30/19 07:00 Actual Procedures p Laparoscopic Appendectomy - Jun Prado MD Current Diagnoses Type 2 diabetes mellitus without complications (06/30/19) Hyperlipidemia, unspecified (06/30/19) Essential (primary) hypertension (06/30/19) Cerebral infarction, unspecified (06/30/19) Unspecified acute appendicitis (06/30/19) Right lower quadrant pain (06/30/19) Solitary pulmonary nodule (06/30/19) Encounter for other preprocedural examination (06/30/19) Encounter for prophylactic measures, unspecified (06/30/19) Allergies bee venom protein (honey bee) Allergy (Unknown, Verified 06/30/19 14:44) LOCALIZED SWELLING AT SITE No Known Drug Allergies Allergy (Unknown, Verified 06/30/19 14:44) NKDA Height/Weight/Isolation Height 5 ft 6 in Weight 89.6 kg Chemistry 06/30/19 13:30 Sodium 133 L Potassium 4.2 Chloride 98 Carbon Dioxide 26 Anion Gap 9.0 BUN 13 Creatinine 1.06 Glucose 464 H* Urinalysis 06/30/19 13:30 Urine Color Yellow Urine Appearance Clear Urine pH 5.0 Ur Specific Barnhart 1.037 H Urine Protein Negative Urine Glucose (UA) 3+ H Urine Ketones 2+ H Urine Blood Negative Urine Nitrite Negative Urine Bilirubin Negative Hospital Course (1) Acute appendicitis: (2) RLQ abdominal pain: This is a 58-year-old male with significant past medical history of T2DM, HTN, HLD, diabetic polyneuropathy, history of CVA in 2008, depression with anxiety who presents to [facility] ED secondary to abdominal pain x1 day. CT scan abd/pelvis revealed: The appendix is dilated measuring 13 mm with wall thickening and adjacent stranding. No free air or collection. Remained afebrile, no leukocytosis No clinical signs of sepsis Seen and evaluated by General Surgery Dr. Prado - s/p laparoscopic appendectomy 06/30 DC later today if tolerating diet. (3) Diabetes mellitus: A1C was 8.2 in 2017 has been off meds for 2-3 years BSG 464 initially, now 365 elevated beta hydroxybutyric acid AG and electrolytes WNL, no signs of acidosis/dka obtain A1C in am. consult clinical nurse educator f/u c PCP Dr Lozano (4) HTN (hypertension): Blood pressure elevated on admission Pain likely contributing; however possibility of uncontrolled hypertension at baseline likely Previously had been on hydrochlorthiazide 25 mg daily and lisinopril 10 mg daily Pt discontinued on own approx 2-3 yrs ago, Resume SHARMILA-I (5) HLD (hyperlipidemia): Check Labs (6) Stroke: pt reports hx of CVA in 2009 w/o residual deficits per neuro notes L thalamic infarct on ASA 325mg daily (7) Lung nodule < 6cm on CT: incidental finding on CT Scan: A few sub 5 mm nodules seen in right middle lobe and left lower lobe. pt denies hx of smoking recommend repeat CT chest in 1 year for follow up (8) DVT prophylaxis: SCD/TEDS post operatively Disposition: pt will be admitted to telemetry post operatively; anticipate discharge home when medically stable Follow up: PCP Dr. Lozano upon discharge Total Time Total Time Spent Total Time Spent (In Minutes): 45 mins Total Time Includes: Examination of the Patient, Discharge Planning, Medication Reconciliation and Communication With Other Providers Discharge Plan Discharge Items Patient Disposition: Home - Self-Care Reason For Visit: ACUTE APPENDICITIS,UNCONTROLLED T2DM AND HTN Discharge Diagnosis: Acute Appendicitis New Onset DM II Obesity HLD HTN Hx of CVA Activity: Resume your previous activity Lifting: Wait until after follow-up appointment Bathing: Keep incision dry Sexual Activity: When tolerated Exercise/Sports: Gradually increase as tolerated Driving/Machine Use: No limitations Weightbearing: Full weightbearing Non-emergency contact: Primary Care Provider and Surgeon Call non-emergency contact if: you have any medication questions Follow-up/Referrals: Jun Prado MD [Physician] - (As Directed) Arcenio Roman MD [Primary Care Provider] - Diet: Carb Consistent or DM2 and Heart Healthy Addtl Attending Provider Instructions: Restart Diabetes regimen, SHARMILA-I added Pending Studies at Discharge: No Stand-Alone Forms: Call Back Authorization, My [facility], Work/School Release (Inpt) Medications and DC Order Prescriptions: New oxycodone-acetaminophen [Percocet] 5-325 mg Tablet 1 tab PO Q4H PRN (Reason: pain) Qty: 30 RF: 0 polyethylene glycol 3350 [Miralax] 17 gram Powder In Packet 17 g PO DAILY PRN (Reason: constipation) Qty: 10 RF: 0 lisinopril 10 mg tablet 10 mg PO DAILY Qty: 30 RF: 0 Jardiance 25 mg tablet 25 mg PO DAILY Qty: 30 RF: 0 metformin 500 mg tablet 500 mg PO BID Qty: 60 RF: 0 Continued aspirin 325 mg Tablet 325 mg PO DAILY RF: 0 Discharge Orders: Discharge Order (Routine); Ordered 07/01/19 Ordered By: Paul Mcdonough/Other Patient Handouts: Appendectomy Admission Data Admit Date/Time: 06/30/19 14:58 Attending Provider: Paul Shelley Admit Provider: Medhat Hayes Primary Care Provider: Arcenio Roman Other Providers: Medhat Hayes ; Jun Prado
[2019-07-01 07:49] LABS: Basophils # (auto) 0.03 K/uL (0-0.2); Basophils % (auto) 0.4 %; Eosinophils # (auto) 0.02 K/uL (0-0.5); Eosinophils % (auto) 0.2 %; Hematocrit (blood only) 38.9 % (42-52); Hemoglobin 12.9 g/dL (14.0-18.0); Immature Granulocytes # (auto) 0.04 K/uL (0.00-0.02); Immature Granulocytes % (auto) 0.5 %; Lymphocytes # (auto) 0.86 K/uL (1.2-3.4); Lymphocytes % (auto) 10.3 %; Mean Corpuscular Hemoglobin 28.7 pg (25-34); Mean Corpuscular Hgb Conc 33.2 g/dL (32-36); Mean Corpuscular Volume 86.6 fL (80-100); Mean Platelet Volume 9.8 fL (7.4-10.4); Monocytes # (auto) 1.03 K/uL (0.11-0.59); Monocytes % (auto) 12.3 %; Neutrophils # (auto) 6.41 K/uL (1.4-6.5); Neutrophils % (auto) 76.3 %; Platelet Count 171 K/uL (130-400); RDW Coefficient of Variation 14.3 % (11.5-14.5); RDW Standard Deviation 45.2 fL (36.4-46.3); Red Blood Count 4.49 M/uL (4.7-6.1); White Blood Count 8.39 K/uL (4.8-10.8)
--- NOTE | 2019-07-01 08:09 | Anesthesiology Progress Note ---
Date of Service July 01, 2019 Anesthesia Post Procedure Vital Signs Vital Signs: Temp Pulse Pulse Pulse Pulse Pulse Resp 07/01/19 07:20 36.9 C 94 H 18 07/01/19 03:06 37.1 C 98 H 20 06/30/19 23:26 36.6 C 94 H 20 06/30/19 19:27 89 16 06/30/19 18:57 87 16 06/30/19 18:42 37.3 C 86 16 06/30/19 18:24 37.3 C 85 86 16 06/30/19 18:00 36.7 C 81 19 06/30/19 17:45 36.8 C 75 15 06/30/19 17:34 77 17 06/30/19 17:24 74 19 06/30/19 17:14 74 18 06/30/19 17:04 74 23 06/30/19 16:54 36.3 C L 79 20 06/30/19 14:28 36.7 C 95 H 15 06/30/19 14:14 99 H 20 06/30/19 13:37 100 H 20 06/30/19 12:46 36.7 C 111 H 19 BP BP BP Pulse Ox Pulse Ox 07/01/19 07:20 138/67 92 07/01/19 03:06 136/65 90 06/30/19 23:26 172/76 H 92 06/30/19 19:27 158/78 H 97 06/30/19 18:57 152/76 H 97 06/30/19 18:42 136/73 97 06/30/19 18:24 136/73 97 97 06/30/19 18:00 161/77 H 98 06/30/19 17:45 160/79 H 99 06/30/19 17:34 152/78 H 94 06/30/19 17:24 159/83 H 99 06/30/19 17:14 154/86 H 97 06/30/19 17:04 150/83 H 100 06/30/19 16:54 156/89 H 100 06/30/19 14:28 161/86 H 96 06/30/19 14:14 177/88 H 94 06/30/19 13:37 176/84 H 95 06/30/19 12:46 183/109 H 93 Pain Intensity Right Abdomen: Pain Intensity: 3 Notes Mental Status: alert / awake / arousable and participated in evaluation Patient Amnestic to Procedure: Yes Nausea / Vomiting: adequately controlled Pain: adequately controlled Airway Patency, RR, SpO2: stable & adequate BP & HR: stable & adequate Hydration State: stable & adequate Anesthetic Complications: no major complications apparent and Pt Satisfied with anesthetic care
[2019-07-01 08:25] LABS: Albumin Level 3.4 gm/dl (3.4-5.0); Calcium 8.4 mg/dl (8.5-10.1); Creatinine Clr Calc Pharmacy 84.8 ml/min; Est GFR (African American) 94.8; Est GFR (Non-African American) 81.8; Potassium 4.1 mmol/L (3.5-5.1)
[2019-07-01] MEDS: INSULIN ASPART 100 UNITS/ML 3 ML PEN SC SCH ×2 (08:27→12:25)
[2019-07-01 08:28] LABS: Bilirubin,Total 0.7 mg/dl (0.2-1); Globulin 3.4 gm/dl (2.5-4.0); Total Protein 6.8 gm/dl (6.4-8.2)
[2019-07-01] MEDS: INSULIN GLARGINE SOLOSTAR 100 UNITS/ML 3 ML PEN SC SCH (08:28)
[2019-07-01 10:32] LABS: Estimated Average Glucose 243 mg/dl; Hemoglobin A1C 10.1 % (4.5-5.6)
--- NOTE | 2019-07-01 11:23 | Surgery Progress Note ---
Date of Service July 01, 2019 Assessment & Plan (1) Acute appendicitis: Postoperative #1 status post laparoscopic appendectomy Doing well Can be discharged from a surgical standpoint Discussed postoperative activity restrictions Follow-up with surgical service in 2 weeks Subjective Postoperative day #1 status post laparoscopic appendectomy Has soreness only Had nausea last night but that resolved and ate a regular breakfast this morning without nausea or vomiting Physical Exam Gastrointestinal (Abdomen): Inspection/Auscultation: + abdominal surgical incision (Clean, dry and intact) Percussion/Palpation: abdomen soft; abdomen nontender Results & Data Vital Signs (Past 12 Hours) Vital Signs Temp Pulse Pulse Resp BP Pulse Ox 07/01/19 08:00 95 H 07/01/19 07:20 36.9 C 94 H 18 138/67 92 07/01/19 03:06 37.1 C 98 H 20 136/65 90 06/30/19 23:26 36.6 C 94 H 20 172/76 H 92 (1) Acute appendicitis Acute appendicitis type: unspecified acute appendicitis type Qualified Code(s): K35.80 - Unspecified acute appendicitis
== END 2019-07-01 13:30 | disposition home or self-care (01) | DRG 343 ==
LOC: ED 12:42 → 2S 14:28 → ASU 14:28 → 2S 14:58 → SUATTDRO 14:58